=== PATIENT | female | born 1980 | race Two or more races ===

== ENCOUNTER 2022-01-07 14:14 | Inpatient (IN) | payer MEDICARE, MEDICAID ==
[~2022-01-07] VITALS: Ht 162.6 cm; Wt 57.2 kg
[~2022-01-07 14:14] MED LIST: ARIP10TA38 PO; BENZ0.5T32 PO; METF1000 PO; SERT-158 PO
[2022-01-08] MEDS ORDERED: HALOPERIDOL 5 MG TABLET PO PRN (01:45)
[2022-01-08] MEDS ORDERED: ZOLPIDEM TARTRATE 10 MG TABLET PO PRN (01:45)
[2022-01-08] MEDS ORDERED: LORazepam 2 MG TABLET PO PRN (01:45)
[2022-01-08] MEDS ORDERED: [UNRECOGNIZED DRUG - REMARK] PO (04:27)
[2022-01-08] MEDS ORDERED: DOCUSATE SODIUM 100 MG CAPSULE PO PRN (06:15)
[2022-01-08] MEDS ORDERED: IBUPROFEN 600 MG TABLET PO PRN (06:15)
[2022-01-08] MEDS ORDERED: PETROLATUM,WHITE 28 GM JELLY TP PRN (06:15)
[2022-01-08] MEDS ORDERED: ALBUTEROL SULFATE HFA 90 MCG/PUFF 8 GM INHALER IH PRN (06:15)
[2022-01-08] MEDS ORDERED: ACETAMINOPHEN 325 MG TABLET PO PRN (06:15)
[2022-01-08] MEDS ORDERED: MAGNESIUM HYDROXIDE SUSPENSION 30 ML UDCUP PO PRN (06:15)
[2022-01-08] MEDS ORDERED: BACITRACIN 28 GM OINTMENT TP PRN (06:15)
[2022-01-08] MEDS ORDERED: PNEUMOCOCCAL VACCINE POLYVALENT 0.5 ML VIAL [PPSV23] IM. ONE (06:15)
[2022-01-08] MEDS ORDERED: GLUCAGON,HUMAN RECOMBINANT 1 MG VIAL IM PRN (06:15)
[2022-01-08] MEDS ORDERED: MAG HYDROX/AL HYDROX/SIMETH ES 30 ML SUSPENSION UDCUP PO PRN (06:15)
[2022-01-08] MEDS ORDERED: ONDANSETRON HCL 4 MG TABLET PO PRN (06:15)
[2022-01-08] MEDS ORDERED: CloNIDine HCL 0.1 MG TABLET PO PRN (06:15)
[2022-01-08] MEDS ORDERED: OMEPRAZOLE 20 MG CAPSULE PO PRN (06:15)
[2022-01-08] MEDS ORDERED: BENZOCAINE/MENTHOL LOZENGE PO PRN (06:15)
[2022-01-08] MEDS ORDERED: LOPERAMIDE HCL 2 MG CAPSULE PO PRN (06:15)
[2022-01-08] MEDS: MetFORMIN HCL 500 MG TABLET PO SCH ×3 (07:00→18:10)
[2022-01-08 08:08] VITALS: BP 90/60
[2022-01-08 08:29] VITALS: BP 112/66
[2022-01-09] MEDS: MetFORMIN HCL 500 MG TABLET PO SCH (17:00)
[2022-01-10] MEDS: MetFORMIN HCL 500 MG TABLET PO SCH ×2 (06:58→16:49)
[2022-01-10] MEDS: ARIPiprazole 10 MG TABLET PO SCH (08:55)
[2022-01-10] MEDS: SERTRALINE HCL 50 MG TABLET PO SCH (08:55)
[2022-01-10] MEDS ORDERED: VENL-68 PO (14:03)
[2022-01-11] MEDS: MetFORMIN HCL 500 MG TABLET PO SCH ×2 (06:19→17:00)
[2022-01-11] MEDS: ARIPiprazole 10 MG TABLET PO SCH (08:41)
[2022-01-11] MEDS: SERTRALINE HCL 50 MG TABLET PO SCH (08:41)
[2022-01-11] MEDS ORDERED: METF-1211 PO (22:38)
[2022-01-12 00:18] VITALS: BP 115/78
[2022-01-12] MEDS: MetFORMIN HCL 500 MG TABLET PO SCH ×2 (06:39→17:00)
[2022-01-12] MEDS: ARIPiprazole 10 MG TABLET PO SCH (09:00)
[2022-01-12] MEDS: SERTRALINE HCL 50 MG TABLET PO SCH (09:00)
[2022-01-12] MEDS: OLANZapine 7.5 MG TABLET PO SCH (20:28)
[2022-01-13] MEDS: MetFORMIN HCL 500 MG TABLET PO SCH ×2 (06:58→17:00)
[2022-01-13 09:00] VITALS: BP 116/78
[2022-01-13] MEDS: ARIPiprazole 10 MG TABLET PO SCH (09:00)
[2022-01-13] MEDS: SERTRALINE HCL 50 MG TABLET PO SCH (09:00)
[2022-01-13] MEDS: OLANZapine 7.5 MG TABLET PO SCH (21:00)
[2022-01-14] MEDS: MetFORMIN HCL 500 MG TABLET PO SCH ×2 (06:42→16:13)
[2022-01-14] MEDS: SERTRALINE HCL 50 MG TABLET PO SCH (08:17)
[2022-01-14] MEDS: ARIPiprazole 10 MG TABLET PO SCH (08:17)
[2022-01-14] MEDS: OLANZapine 7.5 MG TABLET PO SCH (20:37)
[2022-01-14 21:27] VITALS: BP 122/68
[2022-01-15 02:19] VITALS: BP 118/70
[2022-01-15] MEDS: MetFORMIN HCL 500 MG TABLET PO SCH ×2 (06:41→17:00)
[2022-01-15] MEDS: SERTRALINE HCL 50 MG TABLET PO SCH (08:44)
[2022-01-15] MEDS: ARIPiprazole 10 MG TABLET PO SCH (08:44)
[2022-01-15] MEDS: OLANZapine 7.5 MG TABLET PO SCH (21:00)
[2022-01-16] MEDS: MetFORMIN HCL 500 MG TABLET PO SCH ×2 (06:37→17:00)
[2022-01-16] MEDS: SERTRALINE HCL 50 MG TABLET PO SCH (09:00)
[2022-01-16] MEDS: ARIPiprazole 10 MG TABLET PO SCH (09:00)
[2022-01-16 13:06] VITALS: BP 144/70
[2022-01-16] MEDS ORDERED: DiphenhydrAMINE HCL 50 MG/ML VIAL IM ONE (13:30)
[2022-01-16] MEDS ORDERED: LORazepam 2 MG/ML VIAL IM ONE (13:30)
[2022-01-16] MEDS ORDERED: HALOPERIDOL LACTATE 5 MG/ML VIAL IM ONE (13:30)
[2022-01-16] MEDS: OLANZapine 7.5 MG TABLET PO SCH (21:00)
[2022-01-17] MEDS: MetFORMIN HCL 500 MG TABLET PO SCH ×2 (06:36→16:17)
[2022-01-17] MEDS: ARIPiprazole 10 MG TABLET PO SCH (08:52)
[2022-01-17] MEDS: SERTRALINE HCL 50 MG TABLET PO SCH (08:52)
[2022-01-17 16:15] VITALS: BP 122/79
[2022-01-17] MEDS: OLANZapine 7.5 MG TABLET PO SCH (20:12)
[2022-01-18 00:09] VITALS: BP 116/72
[2022-01-18] MEDS: MetFORMIN HCL 500 MG TABLET PO SCH ×2 (06:34→16:10)
[2022-01-18] MEDS: ARIPiprazole 10 MG TABLET PO SCH (09:00)
[2022-01-18] MEDS: SERTRALINE HCL 50 MG TABLET PO SCH (09:00)
[2022-01-18] MEDS: OLANZapine 7.5 MG TABLET PO SCH (20:08)
[2022-01-19] MEDS: MetFORMIN HCL 500 MG TABLET PO SCH ×2 (06:33→16:39)
[2022-01-19] MEDS: SERTRALINE HCL 50 MG TABLET PO SCH (08:24)
[2022-01-19] MEDS: ARIPiprazole 10 MG TABLET PO SCH (08:24)
[2022-01-19] MEDS: OLANZapine 7.5 MG TABLET PO SCH (20:37)
[2022-01-20] MEDS: MetFORMIN HCL 500 MG TABLET PO SCH ×2 (06:36→17:00)
[2022-01-20] MEDS: SERTRALINE HCL 50 MG TABLET PO SCH (09:00)
[2022-01-20] MEDS: ARIPiprazole 10 MG TABLET PO SCH (09:00)
[2022-01-20] MEDS: OLANZapine 7.5 MG TABLET PO SCH (21:00)
[2022-01-21] MEDS: MetFORMIN HCL 500 MG TABLET PO SCH ×2 (06:17→17:00)
[2022-01-21] MEDS: SERTRALINE HCL 50 MG TABLET PO SCH (08:10)
[2022-01-21] MEDS: ARIPiprazole 10 MG TABLET PO SCH (08:10)
[2022-01-21 08:22] VITALS: BP 97/59
[2022-01-21 16:20] VITALS: BP 116/60
[2022-01-21] MEDS: OLANZapine 7.5 MG TABLET PO SCH (20:27)
[2022-01-22] MEDS: MetFORMIN HCL 500 MG TABLET PO SCH ×2 (06:35→17:00)
[2022-01-22] MEDS: ARIPiprazole 10 MG TABLET PO SCH (08:06)
[2022-01-22] MEDS: SERTRALINE HCL 50 MG TABLET PO SCH (08:06)
[2022-01-22] MEDS: OLANZapine 7.5 MG TABLET PO SCH (21:00)
[2022-01-23 00:15] VITALS: BP 104/62
[2022-01-23] MEDS: MetFORMIN HCL 500 MG TABLET PO SCH ×2 (06:51→16:22)
[2022-01-23 08:30] VITALS: BP 106/73
[2022-01-23] MEDS: SERTRALINE HCL 50 MG TABLET PO SCH (09:00)
[2022-01-23] MEDS: ARIPiprazole 10 MG TABLET PO SCH (09:00)
[2022-01-23 20:12] VITALS: BP 109/69
[2022-01-23] MEDS: OLANZapine 7.5 MG TABLET PO SCH (21:00)
[2022-01-24] MEDS: MetFORMIN HCL 500 MG TABLET PO SCH ×2 (06:34→16:54)
[2022-01-24 08:26] VITALS: BP 108/65
[2022-01-24] MEDS: ARIPiprazole 10 MG TABLET PO SCH (09:00)
[2022-01-24] MEDS: SERTRALINE HCL 50 MG TABLET PO SCH (09:00)
[2022-01-24 17:22] VITALS: BP 108/64
[2022-01-24] MEDS: OLANZapine 7.5 MG TABLET PO SCH (21:00)
[2022-01-25 01:44] VITALS: BP 107/66
[2022-01-25] MEDS: MetFORMIN HCL 500 MG TABLET PO SCH ×2 (06:17→16:32)
[2022-01-25 08:16] VITALS: BP 109/68
[2022-01-25] MEDS: ARIPiprazole 10 MG TABLET PO SCH (08:56)
[2022-01-25] MEDS: SERTRALINE HCL 50 MG TABLET PO SCH (08:57)
[2022-01-25 16:16] VITALS: BP 104/73
[2022-01-25] MEDS: OLANZapine 7.5 MG TABLET PO SCH (20:36)
[2022-01-26] MEDS: MetFORMIN HCL 500 MG TABLET PO SCH ×2 (06:38→17:00)
[2022-01-26] MEDS: ARIPiprazole 10 MG TABLET PO SCH (08:40)
[2022-01-26] MEDS: SERTRALINE HCL 50 MG TABLET PO SCH (08:40)
[2022-01-26 20:22] VITALS: BP 112/65
[2022-01-26] MEDS: OLANZapine 7.5 MG TABLET PO SCH (21:00)
[2022-01-27] MEDS: MetFORMIN HCL 500 MG TABLET PO SCH ×2 (06:57→17:00)
[2022-01-27] MEDS: ARIPiprazole 10 MG TABLET PO SCH (08:44)
[2022-01-27] MEDS: SERTRALINE HCL 50 MG TABLET PO SCH (08:44)
[2022-01-27 12:33] VITALS: BP 103/66
[2022-01-27] MEDS ORDERED: HALOPERIDOL LACTATE 5 MG/ML VIAL IM ONE (20:15)
[2022-01-27] MEDS ORDERED: LORazepam 2 MG/ML VIAL IM ONE (20:15)
[2022-01-27] MEDS ORDERED: DiphenhydrAMINE HCL 50 MG/ML VIAL IM ONE (20:15)
[2022-01-27 20:26] VITALS: BP 120/76
[2022-01-27] MEDS: OLANZapine 7.5 MG TABLET PO SCH (20:43)
[2022-01-28 05:29] VITALS: BP 108/64
[2022-01-28] MEDS: MetFORMIN HCL 500 MG TABLET PO SCH ×3 (06:22→16:54)
[2022-01-28] MEDS: SERTRALINE HCL 50 MG TABLET PO SCH (08:14)
[2022-01-28] MEDS: ARIPiprazole 10 MG TABLET PO SCH (08:14)
[2022-01-28] MEDS: OLANZapine 7.5 MG TABLET PO SCH (20:41)
[2022-01-29] MEDS: MetFORMIN HCL 500 MG TABLET PO SCH ×2 (06:39→17:00)
[2022-01-29 08:07] VITALS: BP 100/60
[2022-01-29 08:09] VITALS: BP 113/66
[2022-01-29] MEDS: SERTRALINE HCL 50 MG TABLET PO SCH (08:09)
[2022-01-29] MEDS: ARIPiprazole 10 MG TABLET PO SCH (08:09)
[2022-01-29 20:30] VITALS: BP 120/73
[2022-01-29] MEDS: OLANZapine 7.5 MG TABLET PO SCH (21:00)
[2022-01-30] MEDS: MetFORMIN HCL 500 MG TABLET PO SCH ×2 (06:34→16:47)
[2022-01-30 08:12] VITALS: BP 106/60
[2022-01-30] MEDS: SERTRALINE HCL 50 MG TABLET PO SCH (08:54)
[2022-01-30] MEDS: ARIPiprazole 10 MG TABLET PO SCH (08:54)
[2022-01-30] MEDS: OLANZapine 7.5 MG TABLET PO SCH (21:00)
[2022-01-31] MEDS: MetFORMIN HCL 500 MG TABLET PO SCH ×2 (06:38→17:00)
[2022-01-31] MEDS: SERTRALINE HCL 50 MG TABLET PO SCH (09:00)
[2022-01-31] MEDS: ARIPiprazole 10 MG TABLET PO SCH (09:00)
[2022-01-31 09:09] VITALS: BP 101/58
[2022-01-31] MEDS: OLANZapine 7.5 MG TABLET PO SCH (21:00)
[2022-02-01] MEDS: MetFORMIN HCL 500 MG TABLET PO SCH ×2 (06:24→16:13)
[2022-02-01] MEDS: SERTRALINE HCL 50 MG TABLET PO SCH (08:25)
[2022-02-01] MEDS: ARIPiprazole 10 MG TABLET PO SCH (08:25)
[2022-02-01 08:49] VITALS: BP 129/69
[2022-02-01] MEDS: OLANZapine 7.5 MG TABLET PO SCH (20:11)
[2022-02-02] MEDS: MetFORMIN HCL 500 MG TABLET PO SCH ×2 (06:17→16:34)
[2022-02-02] MEDS: ARIPiprazole 10 MG TABLET PO SCH (09:00)
[2022-02-02] MEDS: SERTRALINE HCL 50 MG TABLET PO SCH (09:00)
[2022-02-02 09:58] VITALS: BP 119/66
[2022-02-02] MEDS: OLANZapine 7.5 MG TABLET PO SCH (20:50)
[2022-02-03] MEDS: MetFORMIN HCL 500 MG TABLET PO SCH ×2 (06:33→17:08)
[2022-02-03] MEDS: SERTRALINE HCL 50 MG TABLET PO SCH (08:41)
[2022-02-03] MEDS: ARIPiprazole 10 MG TABLET PO SCH (08:41)
[2022-02-03] MEDS: HALOPERIDOL LACTATE 5 MG/ML VIAL IM PRN ×2 (08:45→20:48)
[2022-02-03 09:35] VITALS: BP 126/72
[2022-02-03 17:16] LABS: GLUCOMETER DEV NAME(LOC) 3E.C; GLUCOSE,POINT OF CARE 129 MG/DL (70-110)
[2022-02-03 20:19] VITALS: BP 135/85
[2022-02-03 20:31] LABS: GLUCOMETER DEV NAME(LOC) 3E.C; GLUCOSE,POINT OF CARE 109 MG/DL (70-110)
[2022-02-03] MEDS: HALOPERIDOL 10 MG TABLET PO SCH (20:46)
[2022-02-04 06:36] LABS: GLUCOMETER DEV NAME(LOC) 3E.C; GLUCOSE,POINT OF CARE 135 MG/DL (70-110)
[2022-02-04 06:41] LABS: COVID AG,FIA SOURCE NASAL SWAB
[2022-02-04] MEDS: MetFORMIN HCL 500 MG TABLET PO SCH ×2 (07:06→16:40)
[2022-02-04 08:05] VITALS: BP 89/58
[2022-02-04] MEDS: MAGNESIUM SULFATE 454 GM BAG TP SCH ×2 (09:00→10:12)
[2022-02-04] MEDS: TERBINAFINE HCL 1% 30 GM CREAM TP SCH ×3 (09:00→16:40)
[2022-02-04 12:01] LABS: GLUCOMETER DEV NAME(LOC) 3E.C; GLUCOSE,POINT OF CARE 147 MG/DL (70-110)
[2022-02-04] MEDS: INSULIN LISPRO 100 UNITS/ML SQ PRN (14:36)
[2022-02-04 16:47] LABS: GLUCOMETER DEV NAME(LOC) 3E.C; GLUCOSE,POINT OF CARE 136 MG/DL (70-110)
[2022-02-04] MEDS: HALOPERIDOL 10 MG TABLET PO SCH (20:31)
[2022-02-04] MEDS: HALOPERIDOL LACTATE 5 MG/ML VIAL IM PRN (20:34)
[2022-02-04 20:45] VITALS: BP 145/80
[2022-02-05 06:41] LABS: GLUCOMETER DEV NAME(LOC) 3E.C; GLUCOSE,POINT OF CARE 123 MG/DL (70-110)
[2022-02-05] MEDS: MetFORMIN HCL 500 MG TABLET PO SCH ×2 (07:30→15:38)
[2022-02-05 08:04] VITALS: BP 114/59
[2022-02-05] MEDS: TERBINAFINE HCL 1% 30 GM CREAM TP SCH ×2 (09:00→15:37)
[2022-02-05] MEDS: MAGNESIUM SULFATE 454 GM BAG TP SCH (09:00)
[2022-02-05 11:51] LABS: GLUCOMETER DEV NAME(LOC) 3E.C; GLUCOSE,POINT OF CARE 173 MG/DL (70-110)
[2022-02-05 16:45] VITALS: BP 143/80
[2022-02-05 20:09] VITALS: BP 107/68
[2022-02-05] MEDS: HALOPERIDOL 10 MG TABLET PO SCH (21:00)
[2022-02-05 22:16] LABS: GLUCOMETER DEV NAME(LOC) 3E.C; GLUCOSE,POINT OF CARE 187 MG/DL (70-110)
[2022-02-06 06:31] LABS: GLUCOMETER DEV NAME(LOC) 3E.C; GLUCOSE,POINT OF CARE 134 MG/DL (70-110)
[2022-02-06] MEDS: MetFORMIN HCL 500 MG TABLET PO SCH ×2 (06:33→16:51)
[2022-02-06 08:00] VITALS: BP 101/68
[2022-02-06] MEDS: MAGNESIUM SULFATE 454 GM BAG TP SCH (09:00)
[2022-02-06] MEDS: TERBINAFINE HCL 1% 30 GM CREAM TP SCH ×2 (09:00→16:51)
[2022-02-06] MEDS: INSULIN LISPRO 100 UNITS/ML SQ PRN (11:35)
[2022-02-06 16:01] LABS: GLUCOMETER DEV NAME(LOC) 3E.C; GLUCOSE,POINT OF CARE 240 MG/DL (70-110)
[2022-02-06 16:05] LABS: GLUCOMETER DEV NAME(LOC) 3E.C; GLUCOSE,POINT OF CARE 149 MG/DL (70-110)
[2022-02-06 16:53] VITALS: BP 100/66
[2022-02-06] MEDS: HALOPERIDOL 10 MG TABLET PO SCH (20:21)
[2022-02-06 20:40] VITALS: BP 103/64
[2022-02-07] MEDS: MetFORMIN HCL 500 MG TABLET PO SCH ×2 (06:32→16:42)
[2022-02-07 08:14] VITALS: BP 104/63
[2022-02-07] MEDS: MAGNESIUM SULFATE 454 GM BAG TP SCH (08:37)
[2022-02-07] MEDS: TERBINAFINE HCL 1% 30 GM CREAM TP SCH ×2 (08:37→16:41)
[2022-02-07] MEDS: INSULIN LISPRO 100 UNITS/ML SQ PRN (12:09)
[2022-02-07 12:16] LABS: GLUCOMETER DEV NAME(LOC) 3E.C; GLUCOSE,POINT OF CARE 154 MG/DL (70-110)
[2022-02-07 15:56] LABS: GLUCOMETER DEV NAME(LOC) 3E.C; GLUCOSE,POINT OF CARE 165 MG/DL (70-110)
[2022-02-07 16:11] VITALS: BP 93/60
[2022-02-07] MEDS: HALOPERIDOL 10 MG TABLET PO SCH (20:00)
[2022-02-07 21:31] LABS: GLUCOMETER DEV NAME(LOC) 3E.C; GLUCOSE,POINT OF CARE 204 MG/DL (70-110)
[2022-02-08] MEDS: MetFORMIN HCL 500 MG TABLET PO SCH ×2 (06:33→16:24)
[2022-02-08 08:11] VITALS: BP 114/72
[2022-02-08] MEDS: MAGNESIUM SULFATE 454 GM BAG TP SCH (09:00)
[2022-02-08] MEDS: TERBINAFINE HCL 1% 30 GM CREAM TP SCH ×2 (09:00→16:24)
[2022-02-08 16:04] VITALS: BP 97/59
[2022-02-08] MEDS: HALOPERIDOL 10 MG TABLET PO SCH (20:07)
[2022-02-08 20:22] LABS: GLUCOMETER DEV NAME(LOC) 3E.C; GLUCOSE,POINT OF CARE 184 MG/DL (70-110)
[2022-02-09 05:37] LABS: GLUCOMETER DEV NAME(LOC) 3E.C; GLUCOSE,POINT OF CARE 135 MG/DL (70-110)
[2022-02-09] MEDS: MetFORMIN HCL 500 MG TABLET PO SCH ×2 (06:40→07:52)
[2022-02-09] MEDS: INSULIN LISPRO 100 UNITS/ML SQ PRN (06:41)
[2022-02-09] MEDS: TERBINAFINE HCL 1% 30 GM CREAM TP SCH ×2 (07:52→16:32)
[2022-02-09] MEDS: HALOPERIDOL 10 MG TABLET PO SCH (07:52)
[2022-02-09] MEDS: MAGNESIUM SULFATE 454 GM BAG TP SCH (07:52)
[2022-02-09 08:08] VITALS: BP 102/55
[2022-02-09 10:46] LABS: GLUCOMETER DEV NAME(LOC) 3E.C; GLUCOSE,POINT OF CARE 173 MG/DL (70-110)
[2022-02-09 16:14] VITALS: BP 104/81
[2022-02-10] MEDS: MetFORMIN HCL 500 MG TABLET PO SCH ×2 (06:40→16:03)
[2022-02-10 08:10] VITALS: BP 98/60
[2022-02-10] MEDS: TERBINAFINE HCL 1% 30 GM CREAM TP SCH ×2 (08:39→16:03)
[2022-02-10 16:26] VITALS: BP 94/55
[2022-02-10 20:04] VITALS: BP 99/65
[2022-02-10] MEDS: HALOPERIDOL 10 MG TABLET PO SCH (20:12)
[2022-02-11] MEDS: MetFORMIN HCL 500 MG TABLET PO SCH ×2 (06:45→16:03)
[2022-02-11 08:43] VITALS: BP 99/64
[2022-02-11] MEDS: TERBINAFINE HCL 1% 30 GM CREAM TP SCH ×2 (09:00→16:02)
[2022-02-11 16:02] VITALS: BP 101/79
[2022-02-11] MEDS: HALOPERIDOL 10 MG TABLET PO SCH (20:14)
[2022-02-12] MEDS: MetFORMIN HCL 500 MG TABLET PO SCH ×2 (06:44→16:46)
[2022-02-12] MEDS: TERBINAFINE HCL 1% 30 GM CREAM TP SCH ×2 (09:00→16:46)
[2022-02-12 09:03] VITALS: BP 96/58
[2022-02-12 16:07] VITALS: BP 112/81
[2022-02-12 20:10] VITALS: BP 119/83
[2022-02-12] MEDS: HALOPERIDOL 10 MG TABLET PO SCH (21:00)
[2022-02-13] MEDS: MetFORMIN HCL 500 MG TABLET PO SCH ×2 (06:53→08:03)
[2022-02-13 08:00] VITALS: BP 104/66
[2022-02-13] MEDS: TERBINAFINE HCL 1% 30 GM CREAM TP SCH ×2 (08:03→16:35)
[2022-02-13 16:07] VITALS: BP 94/63
[2022-02-13] MEDS: HALOPERIDOL 10 MG TABLET PO SCH (20:01)
[2022-02-14] MEDS: MetFORMIN HCL 500 MG TABLET PO SCH ×2 (06:59→15:33)
[2022-02-14] MEDS: TERBINAFINE HCL 1% 30 GM CREAM TP SCH ×2 (07:34→15:33)
[2022-02-14 08:02] VITALS: BP 121/80
[2022-02-14 15:41] LABS: GLUCOMETER DEV NAME(LOC) 3E.C; GLUCOSE,POINT OF CARE 146 MG/DL (70-110)
[2022-02-14 16:26] VITALS: BP 134/72
[2022-02-14] MEDS: HALOPERIDOL 10 MG TABLET PO SCH (20:05)
[2022-02-14] MEDS: INSULIN LISPRO 100 UNITS/ML SQ PRN (20:07)
[2022-02-15] MEDS: MetFORMIN HCL 500 MG TABLET PO SCH (06:49)
[2022-02-15] MEDS: TERBINAFINE HCL 1% 30 GM CREAM TP SCH (08:17)
[2022-02-15 08:19] VITALS: BP 102/62
[2022-02-15] MEDS ORDERED: HALO10TA21 PO (13:59)
[2022-02-15 16:12] VITALS: BP 102/82
[2022-02-15] MEDS ORDERED: METF-1211 PO (18:59)
== END 2022-02-15 14:30 | disposition home or self-care (01) | DRG 885 ==
LOC: B3A 01-08 01:20 → 3EC 02-03 15:06
PROVIDERS: ADMIT Psychiatry & Neurology Psychiatry; ATTEND Psychiatry & Neurology Psychiatry
DX: F25.9 Schizoaffective disorder, unspecified (principal); D64.9 Anemia, unspecified; Z20.822 Contact with and (suspected) exposure to COVID-19; G47.00 Insomnia, unspecified; K59.00 Constipation, unspecified; F41.9 Anxiety disorder, unspecified; F19.10 Other psychoactive substance abuse, uncomplicated; J44.9 Chronic obstructive pulmonary disease, unspecified; E11.9 Type 2 diabetes mellitus without complications; Z87.891 Personal history of nicotine dependence; Z91.19 Patient's noncompliance with other medical treatment and regimen; Z88.0 Allergy status to penicillin; Z91.013 Allergy to seafood; Z72.89 Other problems related to lifestyle
CPT/HCPCS: 82962; J1200; J1630; J2060

== ENCOUNTER 2022-02-03 11:24 | Emergency (ER) | payer OTHER ==
[~2022-02-03] VITALS: Ht 152.4 cm; Wt 50.0 kg
[~2022-02-03 11:24] MED LIST changes: -BENZ0.5T32 PO; +METF-1211 PO; -METF1000 PO; +VENL-68 PO
[2022-02-03 11:29] VITALS: BP 126/72
[2022-02-03] MEDS ORDERED: HALOPERIDOL LACTATE 5 MG/ML VIAL IM ONE (11:45)
[2022-02-03] MEDS ORDERED: LORazepam 2 MG/ML VIAL IM ONE (11:45)
[2022-02-03] MEDS ORDERED: DiphenhydrAMINE HCL 50 MG/ML VIAL IM ONE (11:45)
== END 2022-02-03 14:30 ==
LOC: EMS 11:24
DX: S91.302A Unspecified open wound, left foot, initial encounter (principal); S91.301A Unspecified open wound, right foot, initial encounter; Z88.0 Allergy status to penicillin; Z91.013 Allergy to seafood; Z88.1 Allergy status to other antibiotic agents; X58.XXXA Exposure to other specified factors, initial encounter; Y93.89 Activity, other specified; Y92.89 Other specified places as the place of occurrence of the external cause; Y99.8 Other external cause status
CPT/HCPCS: 99284; 82962; 96372; J1200; J1630; J2060